=== PATIENT | female | born 1940 | race Caucasian/White ===

== ENCOUNTER → 2016-12-27 | Outpatient (CLI) | payer MEDICARE, OTHER | LOC: OPSV 08:00 → CT 09:30 | DX: E86.0 Dehydration (principal); C50.419 Malignant neoplasm of upper-outer quadrant of unspecified female breast; Z90.12 Acquired absence of left breast and nipple | CPT/HCPCS: 36415; 71260; 74160; 82565; 84520; 96360; 96361; J7030; J7050; Q9965 ==